=== PATIENT | female | born 1965 | race Caucasian/White ===

== ENCOUNTER → 2016-11-19 | Outpatient (CLI) | payer OTHER ==
--- NOTE | 2016-11-19 14:41 | RADRPT ---
EXAM DATE/TIME: 11/19/2016 11:50 [facility] COMPARISON: No previous studies available for comparison. INDICATIONS : Left hip pain post partial hip replacement. MEDICAL HISTORY : None. 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 Prosthesis is well-sea misael. Alignment is anatomic. A fracture is not appreciated. CONCLUSION: Anatomic alignment. Negative for fracture or loosening. Fernando Mcdaniel MD FACR Board Certified Radiologist. This report was verified electronically.
== END ==
LOC: HRAD 11:30
PROVIDERS: ATTEND Family Medicine
DX: M25.552 Pain in left hip (principal)
CPT/HCPCS: 73502

== ENCOUNTER → 2016-12-05 | Outpatient (CLI) | payer OTHER ==
--- NOTE | 2016-12-05 15:40 | RADRPT ---
EXAM DATE/TIME: 12/05/2016 10:12 [facility] COMPARISON: No previous studies available for comparison. PRIOR BONE SCANS: No correlative bone scan available for comparison. INDICATIONS : Left hip and thigh pain with prior left hip replacement. DOSE: 31 mCi Tc99m MDP IV IMAGING: SPECT/CT imaging with fusion was performed. RADIATION DOSE: 3.29 CTDIvol (mGy) MEDICAL HISTORY : None SURGICAL HISTORY : Appendectomy. Breast augmentation and left hip replacement. ENCOUNTER: Initial ACUITY: 2 weeks PAIN SCALE: 6/10 LOCATION: Left hip. TECHNIQUE: Three hours post intravenous administration of radiotracer, whole body bone scan imaging was performe d. FINDINGS: Images demonstrate a homogeneous pattern of uptake in the soft tissue. No hyperemic areas are identi fied. Whole body bone scan demonstrates a normal pattern of uptake throughout the axial and appendic ular skeleton. No focal areas of increased or decreased uptake are seen. Total hip arthroplasty is s een on the left without any areas of abnormal uptake. To further evaluate the lower lumbosacral spine and pelvis, SPECT imaging was performed in sagittal, axial and coronal planes. Attenuation correction was performed with computed tomography and both the attenuation correction and non-attenuation corrected data sets were reviewed. There is a normal darleen se of uptake. No focal abnormalities are seen. CONCLUSION: Unremarkable study and intact total hip arthroplasty on the left. Isaiah Grider MD on December 05, 2016 at 15:22 Board Certified Radiologist. This report was verified electronically.
== END ==
LOC: HRAD 09:24
DX: T84.195A Other mechanical complication of internal fixation device of left femur, initial encounter (principal); M79.652 Pain in left thigh; Y83.9 Surgical procedure, unspecified as the cause of abnormal reaction of the patient, or of later complication, without mention of misadventure at the time of the procedure
CPT/HCPCS: 78306; 78320; 78399; A9503

== ENCOUNTER → 2017-03-13 | Outpatient (CLI) | payer OTHER ==
--- NOTE | 2017-03-13 14:49 | RADRPT ---
EXAM DATE/TIME: 03/13/2017 14:07 [facility] COMPARISON: No previous studies available for comparison. INDICATIONS : Right hand pain, RA MEDICAL HISTORY : Rheumatoid arthritis. SURGICAL HISTORY : None. ENCOUNTER: Initial ACUITY: 3 months PAIN SCORE: 3/10 LOCATION: Right hand FINDINGS: No definite fractures, or dislocations are identified. No definite lytic or sclerotic lesion is seen . The joint spaces are well maintained. No significant erosive changes are seen. CONCLUSION: Unremarkable study. Isaiah Grider MD on March 13, 2017 at 14:46 Board Certified Radiologist. This report was verified electronically.
--- NOTE | 2017-03-13 14:49 | RADRPT ---
EXAM DATE/TIME: 03/13/2017 14:09 [facility] COMPARISON: No previous studies available for comparison. INDICATIONS : Left hand pain, RA. MEDICAL HISTORY : Rheumatoid arthritis. SURGICAL HISTORY : None. ENCOUNTER: Initial ACUITY: 3 months PAIN SCORE: 3/10 LOCATION: Left hand FINDINGS: No definite fractures, or dislocations are identified. No definite lytic or sclerotic lesion is seen . Slight osteopenia is seen. The joint spaces are well maintained. No significant erosive changes ar e seen. CONCLUSION: Slight osteopenia. Isaiah Grider MD on March 13, 2017 at 14:47 Board Certified Radiologist. This report was verified electronically.
--- NOTE | 2017-03-13 14:51 | RADRPT ---
EXAM DATE/TIME: 03/13/2017 14:12 [facility] COMPARISON: No previous studies available for comparison. INDICATIONS : Right foot pain, RA. MEDICAL HISTORY : Rheumatoid arthritis. SURGICAL HISTORY : None. ENCOUNTER: Initial ACUITY: 3 months PAIN SCORE: 3/10 LOCATION: Right foot FINDINGS: No definite fractures, or dislocations are identified. No definite lytic or sclerotic lesion is seen . Slight osteopenia is seen. The joint spaces are well maintained. No significant erosive changes ar e seen. CONCLUSION: Slight osteopenia. Isaiah Grider MD on March 13, 2017 at 14:49 Board Certified Radiologist. This report was verified electronically.
--- NOTE | 2017-03-13 14:52 | RADRPT ---
EXAM DATE/TIME: 03/13/2017 14:14 [facility] COMPARISON: No previous studies available for comparison. INDICATIONS : Left foot pain, RA. MEDICAL HISTORY : Rheumatoid arthritis. SURGICAL HISTORY : None. ENCOUNTER: Initial ACUITY: 3 months PAIN SCORE: 3/10 LOCATION: Left foot FINDINGS: No definite fractures, or dislocations are identified. No definite lytic or sclerotic lesion is seen . Slight osteopenia is seen. The joint spaces are well maintained. No significant erosive changes ar e seen. CONCLUSION: Slight osteopenia. Isaiah Grider MD on March 13, 2017 at 14:50 Board Certified Radiologist. This report was verified electronically.
== END ==
LOC: HRAD 13:49
PROVIDERS: ATTEND Internal Medicine Rheumatology
DX: M06.09 Rheumatoid arthritis without rheumatoid factor, multiple sites (principal)
CPT/HCPCS: 73130; 73630